=== PATIENT | female | born 1985 | race Caucasian/White ===

== ENCOUNTER → 2017-07-14 | Outpatient (CLI) | payer BC ==
[~2017-07-14] MED LIST: CIPRO250 MG PO; TESSALON PERLE100 MG; Z.0.GLUCOPHAGE500 MG
[2017-07-14 11:22] LABS: BASOPHILS # (AUTO) 0.1 (0.0-0.1); BASOPHILS % 0.7 % (0.0-1.0); EOSINOPHILS # (AUTO) 0.2 (0.0-0.4); EOSINOPHILS % 2.8 % (0.0-6.0); HEMATOCRIT 40.8 % (34.2-44.1); LYMPHOCYTES % 36.3 % (18.0-39.1); MEAN CORPUSCULAR HEMOGLOBIN 28.4 pg (28-32); MEAN CORPUSCULAR HGB CONC 34.3 g/dL (31-35); MEAN CORPUSCULAR VOLUME 82.8 fL (81-99); MONOCYTES # (AUTO) 0.7 (0.2-0.8); MONOCYTES % 8.3 % (4.4-11.3); NEUTROPHILS # (AUTO) 4.3 (2.1-6.9); NEUTROPHILS % 51.7 % (38.7-80.0); PLATELET COUNT 359 x10e3/uL (140-360); RED BLOOD COUNT 4.93 x10e6/uL (3.6-5.1); RED CELL DISTRIBUTION WIDTH 12.9 % (11.7-14.4)
[2017-07-14 11:39] LABS: ALANINE AMINOTRANSFERASE 30 IU/L (0-55); ALBUMIN/GLOBULIN RATIO 1.1 (0.8-2.0); ALKALINE PHOSPHATASE 62 IU/L (40-150); ANION GAP 16.1 mmol/L (8-16); BLOOD UREA NITROGEN 12 mg/dL (7-26); BUN/CREATININE RATIO 18 (6-25); CALCIUM 9.4 mg/dL (8.4-10.2); CARBON DIOXIDE 20 mmol/L (22-29); CHLORIDE 108 mmol/L (98-107); CREATININE, SERUM 0.68 mg/dL (0.57-1.11); EST GLOMERULAR FILTRATION RATE > 60 ML/MIN (60-); GLUCOSE 103 mg/dL (74-118); POTASSIUM 4.1 mmol/L (3.5-5.1); SODIUM 140 mmol/L (136-145)
[2017-07-14 12:43] LABS: CHOL/HDL RATIO 3.9 (3.0-3.6); CHOLESTEROL 224 MD/DL (0-199); HDL CHOLESTEROL 57 MG/DL (40-60); LDL CHOLESTEROL 140 MG/DL (60-130); TRIGLYCERIDES 133 MG/DL (0-149)
[2017-07-14 13:03] LABS: THYROID STIMULATING HORMONE 1.081 uIU/mL (0.350-4.940)
== END ==
LOC: LAB 10:36
PROVIDERS: ATTEND Internal Medicine
DX: Z00.00 Encounter for general adult medical examination without abnormal findings (principal); D64.9 Anemia, unspecified; Z83.3 Family history of diabetes mellitus; Z82.49 Family history of ischemic heart disease and other diseases of the circulatory system
CPT/HCPCS: 36415; 80053; 80061; 82306; 83036; 84443; 85025

== ENCOUNTER 2018-03-21 14:17 | Emergency (ER) | payer BC ==
[~2018-03-21] VITALS: Ht 157.5 cm; Wt 99.8 kg
[2018-03-21] MEDS ORDERED: CLONIDINE HCL 0.1 MG TAB PO ONE (14:30)
[2018-03-21] MEDS ORDERED: ACETAMINOPHEN 325 MG TAB PO ONE (14:30)
[2018-03-21] MEDS ORDERED: ONDANSETRON HCL 4 MG ORAL DISINTEGRATING TAB PO ONE (14:30)
[2018-03-21 14:44] LABS: BASOPHILS # (AUTO) 0.1 (0.0-0.1); BASOPHILS % 0.6 % (0.0-1.0); EOSINOPHILS # (AUTO) 0.2 (0.0-0.4); EOSINOPHILS % 1.8 % (0.0-6.0); HEMATOCRIT 40.2 % (34.2-44.1); HEMOGLOBIN 13.8 g/dL (12.0-16.0); LYMPHOCYTES # (AUTO) 3.5 (1.0-3.2); LYMPHOCYTES % 31.4 % (18.0-39.1); MEAN CORPUSCULAR HEMOGLOBIN 28.5 pg (28-32); MEAN CORPUSCULAR HGB CONC 34.3 g/dL (31-35); MEAN CORPUSCULAR VOLUME 83.1 fL (81-99); MONOCYTES # (AUTO) 0.9 (0.2-0.8); MONOCYTES % 8.1 % (4.4-11.3); NEUTROPHILS # (AUTO) 6.3 (2.1-6.9); NEUTROPHILS % 57.6 % (38.7-80.0); PLATELET COUNT 403 x10e3/uL (140-360); RED BLOOD COUNT 4.84 x10e6/uL (3.6-5.1); RED CELL DISTRIBUTION WIDTH 12.5 % (11.7-14.4)
[2018-03-21 14:54] LABS: INR 0.85; PARTIAL THROMBOPLASTIN TIME 28.2 seconds (23.8-35.5); PROTHROMBIN TIME 12.4 seconds (11.9-14.5)
[2018-03-21 15:02] LABS: ALANINE AMINOTRANSFERASE 36 IU/L (0-55); ALBUMIN 4.2 g/dL (3.5-5.0); ALBUMIN/GLOBULIN RATIO 1.5 (0.8-2.0); ALKALINE PHOSPHATASE 88 IU/L (40-150); ANION GAP 15.3 mmol/L (8-16); BLOOD UREA NITROGEN 11 mg/dL (7-26); BUN/CREATININE RATIO 16 (6-25); CALCIUM 8.8 mg/dL (8.4-10.2); CARBON DIOXIDE 17 mmol/L (22-29); CHLORIDE 107 mmol/L (98-107); CREATINE KINASE 87 IU/L (29-168); CREATININE, SERUM 0.67 mg/dL (0.57-1.11); EST GLOMERULAR FILTRATION RATE > 60 ML/MIN (60-); GLUCOSE 135 mg/dL (74-118); POTASSIUM 3.3 mmol/L (3.5-5.1); SODIUM 136 mmol/L (136-145)
--- NOTE | 2018-03-21 15:08 | Diagnostic Imaging Report ---
EXAMINATION: Head CT HISTORY: Dizziness. COMPARISON: None. TECHNIQUE: Multidetector axial images were obtained without contrast from the foramen magnum to the vertex . The images were reconstructed using brain and bone algorithms. Thin section brain images were reformatted into coronal and sagittal planes. Image quality: Motion/streaking artifact limits the evaluation of the skull base and posterior cranial fossa. Dose modulation, iterative reconstruction, and/or weight based adjustment of the mA/kV was utilized to reduce the radiation dose to as low as reasonably achievable. FINDINGS: Parenchyma: 1. No abnormal densities. 2. No mass or hemorrhage. No CT evidence of acute territorial vascular insult. Extra-axial spaces:No abnormal density. No extra-axial fluid collections Brain volume: Normal for age. Ventricles: No hydrocephalus or displacement. Arteries: No density suggestive of thrombus. Dural sinuses: No abnormal density. Extra-axial spaces: No abnormal density. Foramen magnum: No mass, Chiari malformation, or basilar invagination. Sella: No obvious mass. Paranasal/mastoid sinuses: Imaged portions unremarkable. Skull/Scalp: No lytic or blastic lesions. No fractures. IMPRESSION: No intracranial abnormalities. Signed by: Dr. Aissatou Taylor M.D. on 03/21/2018 3:04 PM
[2018-03-21] MEDS ORDERED: MECLIZINE HCL 12.5 MG TAB PO ONE (15:15)
[2018-03-21] MEDS ORDERED: POTASSIUM CHLORIDE 20 MEQ TAB CR PO STA (15:20)
[2018-03-21 15:27] LABS: CLARITY,URINE SL CLOUDY (CLEAR); COLOR,URINE YELLOW (YELLOW)
[2018-03-21 15:28] LABS: BILIRUBIN,URINE NEGATIVE (NEGATIVE); KETONES,URINE NEGATIVE (NEGATIVE); LEUKOCYTE ESTERASE ,URINE NEGATIVE (NEGATIVE); NITRITE,URINE NEGATIVE (NEGATIVE); PROTEIN,URINE DIPSTICK NEGATIVE (NEGATIVE); URINE UROBILINOGEN 0.2 mg/dL (0.2 - 1)
[2018-03-21 15:44] LABS: CALCIUM OXALATE CRYSTALS,UR MODERATE (FEW); EPITHELIAL CELLS,URINE FEW /LPF; HYALINE CASTS 0-1 (0-1); RBC,URINE 0-5 /HPF (0-5)
[2018-03-21] MEDS ORDERED: MECLIZINE HCL12.5 MG PO (16:51)
== END 2018-03-21 17:40 | disposition home or self-care (01) ==
LOC: ER 14:21
DX: R42 Dizziness and giddiness (principal); I10 Essential (primary) hypertension
CPT/HCPCS: 36415; 70450; 80053; 81001; 81025; 82550; 82553; 83735; 84484; 85025; 85610; 85730; 93005; 99284; Q0162